=== PATIENT | male | born 1960 | race Two or more races ===

== ENCOUNTER 2024-07-12 18:32 | Emergency (ER) | payer OTHER ==
[~2024-07-12] VITALS: Ht 172.7 cm; Wt 80.0 kg
[2024-07-12 21:46] VITALS: BP 172/109; PULSE 83; RESP 20; TEMP 97.7; O2SAT 100
[2024-07-12] MEDS: cloNIDine HCL 0.1 MG TAB PO ONE (22:24)
[2024-07-12] MEDS: HYDROcodone-ACET 5/325MG TAB PO ONE (22:24)
[2024-07-12] MEDS ORDERED: METH4PAK PO (23:25)
[2024-07-12] MEDS: KETOROLAC TROMETH 30 MG/ML 1ML VIAL IV ONE (23:27)
== END 2024-07-12 23:54 | disposition home or self-care (01) ==
LOC: EDBD 18:32 → ER 18:32
DX: S33.5XXA Sprain of ligaments of lumbar spine, initial encounter (principal); M54.16 Radiculopathy, lumbar region; Z79.899 Other long term (current) drug therapy; X58.XXXA Exposure to other specified factors, initial encounter; Y93.89 Activity, other specified; Y92.89 Other specified places as the place of occurrence of the external cause; Y99.8 Other external cause status
CPT/HCPCS: 99283; J1885